=== PATIENT | male | born 1955 | race Caucasian/White ===

== ENCOUNTER 2023-09-08 11:54 | Observation (INO) | payer OTHER ==
[2023-09-08 12:36] VITALS: BMI 25.7
[2023-09-08] MEDS: DIGOXIN 0.25 MG/ML AMP IV SCH (14:00)
[2023-09-08] MEDS: APIXABAN 5 MG TABLET PO ONE (14:17)
[2023-09-08] MEDS: SOTALOL HCL 80 MG TAB PO ONE (14:18)
[2023-09-08] MEDS: METOPROLOL TARTRATE 5 MG/5 ML INJ IV STA (14:18)
[2023-09-08 14:30] LABS: Absolute Basophils 0.1 K/uL (0-0.5); Absolute Eosinophils 0.1 K/uL (0-0.5); Absolute Lymphocytes (CBC) 0.9 K/uL (0.7-4.9); Absolute Monocytes 0.7 K/uL (0.1-1.3); Absolute Neutrophil 12.3 K/uL (1.8-8.0); Basophils % 0.4 % (0-1.3); Eosinophils % 0.6 % (0-4.4); Hematocrit 45.6 % (39.6-49.0); Hemoglobin 15.3 g/dL (13.6-17.9); Lymphocytes % 6.4 % (15.3-44.8); MCHC 33.5 g/dL (32.0-36.0); MCV 89.5 fL (80-100); MPV 6.6 fL (7.6-11.3); Monocytes % 5.1 % (3.3-12.3); Neutrophils % 87.5 % (41.7-73.7); Platelets 366 thou/uL (152-406); Red Cell Distribution Width 13.9 % (12.1-15.2)
--- NOTE | 2023-09-08 14:43 | RAD REPORT ---
EXAM DESCRIPTION: RAD - Chest Pa And Lat (2 Views) - 09/08/2023 2:37 pm CLINICAL HISTORY: afib Chest pain. COMPARISON: Chest Pa And Lat (2 Views) dated 06/26/2021 FINDINGS: The lungs are clear. The heart is mildly enlarged in size. No displaced fractures. IMPRESSION: No acute or concerning finding suspected. The USPSTF recommends annual screening for lung cancer with low-dose CT (LDCT) in adults aged 50 to 8 0 years who have a 20 pack-year smoking history and currently smoke or have quit within the past 15 y ears.
[2023-09-08 15:00] LABS: Albumin/Globulin Ratio 1.2 (1.1-1.8); Bilirubin Total 0.5 mg/dL (0.2-1.0); Blood Morphology Comment NOT SEEN (NOT SEEN); Globulin 3.4 g/dL (2.3-3.5); Platelet Estimate ADEQ; Protein, Total 7.4 g/dL (6.4-8.2); Thyroid Stimulating Hormone 0.779 uIU/mL (0.358-3.740); Troponin High Sensitivity 4.7 pg/mL (<58.9); White Blood Cell Scan OK (OK)
[2023-09-09] MEDS: APIXABAN 5 MG TABLET PO ONE (01:58)
[2023-09-09] MEDS: SOTALOL HCL 80 MG TAB PO ONE ×2 (01:58→14:06)
[2023-09-09 05:02] LABS: Specific Gravity 1.014 (1.005-1.030); Sqamous Epithelial None Seen /HPF (None Seen); Urine Bacteria None Seen /HPF (<20); Urine Bilirubin NEGATIVE (Negative); Urine Blood 1+ (Negative); Urine Clarity Clear (Clear); Urine Color Light-Yellow (Yellow); Urine Culture Reflex Order NOT NEEDED; Urine Glucose NEGATIVE (Negative); Urine Ketones NEGATIVE (Negative); Urine Microscopic Reflex YN ORDER UMIC; Urine Mucus Slight /HPF (None Seen); Urine Nitrite NEGATIVE (Negative); Urine Protein NEGATIVE (Negative); Urine RBC <5 /HPF (None Seen); Urine Urobilinogen Normal (Normal); Urine WBC <5 /HPF (<5)
--- NOTE | 2023-09-09 05:03 | HP ---
Date of Admission: 09/08/2023 Chief Complaint: Rapid heart rate. History Of Present Illness: This is a 68-year-old pleasant male patient, who came into office for hi s regular followup visit with his family members. The patient denies any complaints of any fever, ch ills, nausea, vomiting, diarrhea. No bleeding. No chest pain, shortness of breath, or palpitation p roblems. Upon routine evaluation at office, he was noted to have rapid heart rate with pulse rate be tween 120 to 130 and it was irregularly irregular and the patient was totally asymptomatic, but this is something new and different for him and we were concerned about atrial fibrillation with rapid agustin tricular rate, so decision was made to admit him to the hospital. The patient in the past was seeing a enterprise solutions architect in [place], but he has not seen this enterprise solutions architect in a long time and the patient's fa josie has decided to go ahead and get him admitted to our hospital for further management instead of g oing back to [place]. Allergies: NO KNOWN ALLERGIES. Medications: Atorvastatin 10 mg daily, famotidine 20 mg 2 times a day, lisinopril/HCTZ 20/25 mg take s 1 tablet 2 times a day, potassium chloride 10 mEq daily, nifedipine 60 mg daily in morning. Review of Systems: Cardiovascular: As mentioned above. All other systems reviewed and negative. 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 Past Surgical History: Excision of squamous cell carcinoma. Family History: Father , had congestive heart failure. Mother , had diabetes. Social History: Negative for smoking and alcohol use. Physical Examination: Vital Signs: At office, blood pressure 121/80, pulse 132 and irregularly irregular, temperature 97.5 , respiratory rate 18, weight 151.6 pounds, height 64 inches. General: Awake, alert, oriented, not in distress. HEENT: Head atraumatic, normocephalic. Ptosis of left upper eyelid, unchanged from before. Mouth, no thrush or edema noted. Ears/Nose, no mass, lesion, discharge noted. Neck: Supple. No JVD, lymph nodes, bruit, thyromegaly noted. Lungs: Bilateral good equal air entry. Clear to auscultation. No rhonchi. No rales. Heart: The patient's heart rhythm is irregularly irregular. No murmur. No gallop. Abdomen: Soft, bowel sounds normal. No guarding, rigidity, tenderness, mass, hepatosplenomegaly, dis tention, or bruit noted. Extremities: No leg edema. No calf tenderness. Skin: No rash, ulcer, cellulitis. Lymphatics: No lymph node enlargement in neck, supraclavicular, infraclavicular region. Neuro: No focal neurological deficit. Chest: Unremarkable. External Genitalia: Deferred. Rectal: Deferred. Laboratory Data: White count 14, hemoglobin 15.3, platelets 366. Sodium 132, potassium 3, chloride 97, bicarb 31, BUN 15, creatinine 0.87, glucose 114. Liver function tests unremarkable. Troponin 4. 7. TSH 0.779. Chest x-ray, no acute cardiopulmonary changes. EKG shows atrial fibrillation. Impression: 1.Chronic atrial fibrillation, with rapid ventricular rate. 2.Hypertension. 3.Hyperlipidemia. 4.Gastroesophageal reflux disease. 5.Leukocytosis. Plan: The patient will be admitted to hospital to telemetry. He is appropriate for inpatient and is expected to spend 2 midnights in hospital. When he was first admitted to the hospital, his heart ra te was 140 to 160 beats per minute. IV Lopressor x1 dose was ordered. After that, his heart rate ca me down and we did not have to give digoxin, which was ordered. We will start him on Eliquis 5 mg 2 times a day and sotalol 80 mg 2 times a day. Cardiology consultation will be requested and we will g et echo with Doppler. I did call enterprise solutions architect, Dr. Carrion, and details were discussed with him. I benigno dallas discussed with the patient and his family member regarding risks and benefits of anticoagulation therapy. For hypertension, we will monitor his blood pressure and make adjustment on blood pressure medication as it becomes necessary. For hyperlipidemia, we will continue his statin therapy. I will see him tomorrow for followup. Total time spent today was 80 minutes. ELENO/MODL Voice ID: [id number]
[2023-09-09 07:18] LABS: Absolute Basophils 0.1 K/uL (0-0.5); Absolute Eosinophils 0.2 K/uL (0-0.5); Absolute Lymphocytes (CBC) 1.3 K/uL (0.7-4.9); Absolute Monocytes 0.7 K/uL (0.1-1.3); Absolute Neutrophil 8.5 K/uL (1.8-8.0); Basophils % 0.5 % (0-1.3); Eosinophils % 1.9 % (0-4.4); Hematocrit 43.9 % (39.6-49.0); Hemoglobin 15.1 g/dL (13.6-17.9); Lymphocytes % 12.1 % (15.3-44.8); MCH 30.8 pg (27.0-35.0); MCHC 34.4 g/dL (32.0-36.0); MCV 89.6 fL (80-100); MPV 6.6 fL (7.6-11.3); Monocytes % 6.8 % (3.3-12.3); Neutrophils % 78.7 % (41.7-73.7); Platelets 421 thou/uL (152-406); RBC Red Blood Cell Count 4.89 M/uL (4.33-5.43); Red Cell Distribution Width 13.8 % (12.1-15.2)
[2023-09-09 07:30] LABS: Anion Gap 7.3 mEq/L (5.0-15.0); Magnesium 2.3 mg/dL (1.6-2.4); Potassium 3.3 mEq/L (3.5-5.1)
[2023-09-09] MEDS: POTASSIUM 25 MEQ EFFERV TAB PO ONE ×2 (08:46→16:51)
--- NOTE | 2023-09-09 14:01 | EKG ---
Test Date: 2023-09-08 Test Time: 14:59:18 Client Services Coordinator: LUIS MEASUREMENT RESULTS: Intervals: Rate: 57 NE: 162 QRSD: 86 QT: 416 QTc: 404 [place]: P: 50 NE: 162 QRS: -10 T: 27 INTERPRETIVE STATEMENTS: Sinus bradycardia Otherwise normal ECG No previous ECG available for comparison Electronically Signed On 09-09-23 13:58:41 CDT by Eddie Carrion
--- NOTE | 2023-09-09 14:03 | P.CNS ---
Date of Consult: 09/09/23 Chief Complaint: atrial fibrillation History of Present Illness: Patient with PMH of HTN was admitted from Dr. Becker office as he was found to be in AF w RVR, patient denies feeling it, no chest pain, no SOB, no palpitations, no syncope. Allergies No Known Allergies Allergy (Verified 09/08/23 12:24) Home Medications: Atorvastatin Calcium [Lipitor] 10 mg PO BEDTIME 09/08/23 Lisinopril/Hydrochlorothiazide [Lisinopril-Hctz 20-25 mg Tab] 20 mg PO BID 09/08/23 Nifedipine [Nifedipine ER] 30 mg PO DAILY 09/08/23 Potassium Chloride 10 meq PO DAILY 09/08/23 - Past Medical/Surgical History -: HTN -: Tonsillectomy - Family History Father Medical History: Heart disease Notes: CHF-- Mother Medical History: Diabetes Notes: Diabetes-- - Social History Alcohol use: No CD- Drugs: No Caffeine use: No Place of Residence: Home Review of Systems 10-point ROS is otherwise unremarkable Physical Examination Temp Pulse Resp BP Pulse Ox 98.0 F 55 14 157/72 H 97 09/09/23 11:55 09/09/23 11:55 09/09/23 11:55 09/09/23 11:55 09/09/23 11:55 General: Alert, Oriented x3 HEENT: Atraumatic Neck: Supple Respiratory: Clear to auscultation bilaterally Cardiovascular: No edema, Normal S1 S2 Gastrointestinal: Normal bowel sounds Laboratory Data (last 24 hrs) 09/09/23 09/09/23 09/08/23 07:04 07:04 14:11 WBC 10.90 Hgb 15.1 Hct 43.9 Plt Count 421 H Sodium 133 L 132 L Potassium 3.3 L 3.0 L BUN 21 H 15 Creatinine 1.10 0.87 Glucose 132 H 114 H Magnesium 2.3 2.0 Total Bilirubin 0.5 AST 18 ALT 34 Alkaline Phosphatase 74 09/08/23 14:11 WBC 14.00 H Hgb 15.3 Hct 45.6 Plt Count 366 Sodium Potassium BUN Creatinine Glucose Magnesium Total Bilirubin AST ALT Alkaline Phosphatase - Problems (1) Atrial fibrillation Current Visit: Yes Status: Acute Plan: patient is having sinus bradycardia agree with lowering Sotalol to 40 mg po BID Ekg after 3rd dose Eliquis 5 mg po BID stop nifedpine. (2) HTN (hypertension) Current Visit: Yes Status: Acute Plan: continue losartan/HCTZ D/C nifedpine (3) HLD (hyperlipidemia) Current Visit: Yes Status: Acute Plan: continue Lipitor 10 mg daily
--- NOTE | 2023-09-09 14:15 | ECHO ---
HEIGHT: 5 ft 4 in WEIGHT: 150 lb 0 oz DATE OF STUDY: 09/09/[address]: Joni Becker MD 2-DIMENSIONAL: YES M.MODE: YES DOPPLER: YES COLOR FLOW: YES TDS: PORTABLE: YES DEFINITY: BUBBLE STUDY: DIAGNOSIS: ATRIAL FIBRILLATION CARDIAC HISTORY: CATHERIZATION: NO SURGERY: NO PROSTHETIC VALVE: NO PACEMAKER: NO MEASUREMENTS (cm) DIASTOLIC (NORMALS) SYSTOLIC (NORMALS) IVSd 1.1 (0.6-1.2) LA Diam 2.9 (1.9-4.0) LVEF 64% LVIDd 3.7 (3.5-5.7) LVIDs 2.5 (2.0-3.5) %FS 34% LVPWd 1.1 (0.6-1.2) Ao Diam 3.0 (2.0-3.7) 2 DIMENSIONAL ASSESSMENT: RIGHT ATRIUM: NORMAL LEFT ATRIUM: NORMAL RIGHT VENTRICLE: NORMAL LEFT VENTRICLE: NORMAL TRICUSPID VALVE: NORMAL MITRAL VALVE: MILD MITRAL REGURGITATION PULMONIC VALVE: NORMAL AORTIC VALVE: NORMAL PERICARDIAL EFFUSION: NONE AORTIC ROOT: NORMAL LEFT VENTRICULAR WALL MOTION: NORMAL DOPPLER/COLOR FLOW: SEE BELOW COMMENTS: 1. NORMAL LEFT VENTRICULAR EJECTION FRACTION 60-65% 2. NORMAL WALL MOTION 3. MILD MITRAL REGURGITATION TECHNOLOGIST: ZACKARY DUPREE
[2023-09-09 16:34] VITALS: BP 160/73; TEMP 98.4
--- NOTE | 2023-09-10 04:24 | DS ---
Date of Discharge: 09/09/2023 History Of Present Illness: The patient was seen this morning for followup. He was lying in bed, no t in distress. Denies any complaints. No chest pain, shortness of breath, palpitation. Overnight, he has remained in sinus rhythm. In fact, sinus bradycardia with heart rate anywhere between 45 to 5 0 beats per minute. The patient converted to sinus rhythm yesterday. This morning when I saw him, benigno brothers had received 2 doses of sotalol 80 mg each time and after I saw him, we did reduce his sotalol dose to 40 mg which he got it as a third dose this afternoon. Physical Examination: HEENT: Unremarkable. Lungs: Clear to auscultation. Heart: Sounds normal. Abdomen: Soft. Bowel sounds normal. No guarding, rigidity, tenderness, distention. Extremities: No leg edema. Hospital Course: This is a 68-year-old pleasant male patient, who was admitted to the hospital yeste rday with atrial fibrillation with rapid ventricular rate. Please see dictated H and P for more info rmation. After the patient was evaluated at office, decision was made to admit him to hospital and a fter arrangements completed for direct admission, he was admitted to the hospital. The patient was k ept on telemetry. Upon admission, his heart rate was elevated anywhere between 150 to 160 per minute . IV Lopressor x1 dose was given and the patient was started on sotalol and Eliquis. The patient co nverted to sinus rhythm and has remained in sinus rhythm. In fact, he has had sinus bradycardia with heart rate between 45 to 50 beats per minute. He has tolerated his sotalol and Eliquis very well wi thout any problems. Cardiology consultation was requested from Dr. Chauhan and the patient's blood wo rk was unremarkable. Echocardiogram done today showed normal ejection fraction and unremarkable echo cardiogram. The patient will need to have elective stress test on outpatient basis and he can get th is done when he goes back to shredding floor equipment operator's office for outpatient followup as suggested. Today, he w as discharged to go home in stable condition and the patient's cousin came to office to filler picker list of his discharge medication and all the instructions personally provided to the patient's cousin by arely brothers. The patient's WBC count yesterday upon admission was elevated at 14 and today it came back to normal. Chest x-ray was unremarkable. Urinalysis was negative. There was no evidence of any infection any where and the patient did not require any antibiotic. Final Diagnoses: 1.Paroxysmal atrial fibrillation, with rapid ventricular rate, converted to sinus rhythm now. 2.Hypokalemia. 3.Hypertension. 4.Hyperlipidemia. 5.Gastroesophageal reflux disease. 6.Leukocytosis. Laboratory Data: Yesterday, white count 14, hemoglobin 15.3, platelets 366. Sodium 132, potassium 3 , chloride 97, bicarb 31, BUN 15, creatinine 0.87, glucose 114. Liver function tests unremarkable. Troponin 4.7. TSH 0.77. Discharge Medications And Instructions: 1.Continue atorvastatin 10 mg daily and famotidine 20 mg 2 times a day. 2.Stop lisinopril/HCTZ, potassium chloride, nifedipine. 3.Start new medications, which is Eliquis 5 mg 2 times a day, sotalol 80 mg take half a tablet 2 claudia es a day and lisinopril 20 mg take 1 tablet daily. 4.Follow up at my office next week and follow up with shredding floor equipment operator in 2 weeks. ELENO/NAIF Voice ID: [id number] Report ID: [id number]
--- NOTE | 2023-09-11 14:05 | EKG ---
Test Date: 2023-09-09 Test Time: 15:48:51 Security Intelligence Analyst: MARIVEL MEASUREMENT RESULTS: Intervals: Rate: 54 NM: 158 QRSD: 88 QT: 492 QTc: 466 [place]: P: 39 NM: 158 QRS: -41 T: 27 INTERPRETIVE STATEMENTS: Sinus bradycardia with occasional premature ventricular complexes Left axis deviation Abnormal ECG Compared to ECG 09/08/2023 14:59:18 Ventricular premature complex(es) now present Left-axis deviation now present Electronically Signed On 09-11-23 14:00:55 CDT by Eddie Carrion
== END 2023-09-09 18:56 | disposition home or self-care (01) ==
LOC: INTOOBSV 11:54 → 2ND 11:54
PROVIDERS: ADMIT Internal Medicine; ATTEND Internal Medicine
DX: I48.0 Paroxysmal atrial fibrillation (principal); I10 Essential (primary) hypertension; E78.5 Hyperlipidemia, unspecified; E87.6 Hypokalemia; K21.9 Gastro-esophageal reflux disease without esophagitis; D72.829 Elevated white blood cell count, unspecified; Z83.3 Family history of diabetes mellitus; Z82.49 Family history of ischemic heart disease and other diseases of the circulatory system
CPT/HCPCS: 93005; 93306; 85025 ×2; 81001; 80048; 36415; 83735 ×2; 84132; 84443; 84484; 80053; 71046; G0379; G0378 ×2; J1160